=== PATIENT | female | born 2000 | race African-American/Black ===

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

== ENCOUNTER 2020-04-30 23:37 | Observation (INO) | payer MEDICAID ==
[~2020-04-30] VITALS: Ht 157.5 cm; Wt 78.9 kg
[2020-05-01] MEDS: LACTATED RINGERS 1,000 ML IV SCH ×2 (01:43→02:30)
[2020-05-01 03:02] LABS: CLARITY URINE CLEAR (CLEAR); KETONES URINE NEGATIVE (NEGATIVE); LEUKOCYTE ESTERASE URINE NEGATIVE (NEGATIVE); NITRITE URINE NEGATIVE (NEGATIVE); OCCULT BLOOD URINE NEGATIVE (NEGATIVE); PROTEIN URINE NEGATIVE (NEGATIVE); SPECIFIC GRAVITY URINE 1.004 (1.005-1.030); UROBILINOGEN URINE 0.2 E.U./dL (0.2-1.0)
[2020-05-01 03:11] LABS: *AMPHETAMINES SCREEN URINE NEGATIVE (NEGATIVE); *BARBITURATES SCREEN URINE NEGATIVE (NEGATIVE); *BENZODIAZEPINES SCREEN URINE NEGATIVE (NEGATIVE); *COCAINE SCREEN URINE NEGATIVE (NEGATIVE)
[2020-05-01 03:12] LABS: CANNABINOID URINE SCREEN NEGATIVE (NEGATIVE); METHADONE URINE SCREEN NEGATIVE (NEGATIVE); OPIATES URINE SCREEN NEGATIVE (NEGATIVE); PHENCYCLIDINE URINE SCREEN NEGATIVE (NEGATIVE)
[2020-05-01 03:25] LABS: COLOR URINE YELLOW (YELLOW)
[2020-05-01] MEDS ORDERED: PREN1TAB78 PO (03:52)
[2020-05-01] MEDS ORDERED: FOLI-43 PO (03:52)
[2020-05-01] MEDS ORDERED: FERR-71 PO (03:52)
[2020-05-01] MEDS ORDERED: CALC-1042 PO (03:52)
== END 2020-05-01 04:15 | disposition home or self-care (01) ==
LOC: 8 EST LDRP 23:37
PROVIDERS: ADMIT Obstetrics & Gynecology; ATTEND Obstetrics & Gynecology
DX: O36.8120 Decreased fetal movements, second trimester, not applicable or unspecified (principal); Z3A.22 22 weeks gestation of pregnancy; Z79.899 Other long term (current) drug therapy
CPT/HCPCS: 59025; 80305; 81003; 96360; 96361; G0378; 99281

== ENCOUNTER 2024-10-12 14:24 | Emergency (ER) | payer MEDICAID ==
[~2024-10-12] VITALS: Ht 162.6 cm; Wt 68.0 kg
[~2024-10-12 14:24] MED LIST: CALC-1042 PO; FERR-71 PO; FOLI-43 PO; PREN1TAB78 PO
[2024-10-12 14:28] VITALS: O2SAT 98
[2024-10-12] MEDS: IBUPROFEN 600MG TABLET PO ONE (17:38)
[2024-10-12 17:48] VITALS: BP 115/66; PULSE 72; RESP 16; TEMP 36.8; O2SAT 98
== END 2024-10-12 17:49 | disposition home or self-care (01) ==
LOC: ER 14:38
DX: M79.18 Myalgia, other site (principal); V43.52XA Car driver injured in collision with other type car in traffic accident, initial encounter; Y93.89 Activity, other specified; Y92.410 Unspecified street and highway as the place of occurrence of the external cause; Y99.8 Other external cause status
CPT/HCPCS: 99283

== ENCOUNTER 2025-06-18 10:39 | Emergency (ER) | payer MEDICAID ==
[~2025-06-18] VITALS: Ht 167.6 cm; Wt 66.0 kg
[2025-06-18 10:43] VITALS: O2SAT 99
[2025-06-18 11:48] LABS: BASOPHILS % 0.4 % (0.0-2.0); EOSINOPHILS % 0.3 % (0.0-5.0); HEMATOCRIT. 33.6 % (36.0-48.0); HEMOGLOBIN. 11.2 g/dL (12.0-16.0); LYMPHOCYTES % 12.4 % (20.0-50.0); MEAN PLATELET VOLUME 10.3 fl (7.4-10.4); MONOCYTES % 5.5 % (2.0-8.0); NEUTROPHILS % 81.4 % (40.0-76.0); PLATELET 202 x1000/uL (130-400); RED BLOOD CELL COUNT 3.55 mill/uL (4.2-5.4); RED CELL DISTRIBUTION WIDTH 12.1 % (11.6-14.6)
[2025-06-18 12:01] LABS: CREATININE 0.9 mg/dL (0.6-1.0); UREA NITROGEN BLOOD 7 mg/dL (9-23)
[2025-06-18 12:03] LABS: ASPARTATE AMINOTRANSFERASE 20 IU/L (<34); BILIRUBIN DIRECT 0.2 mg/dL (<=3.0)
[2025-06-18 12:04] LABS: BILIRUBIN TOTAL 0.6 mg/dL (0.1-1.0); PROTEIN TOTAL 7.6 g/dL (6.0-8.3)
[2025-06-18 12:12] LABS: CLARITY URINE CLEAR (CLEAR); COLOR URINE YELLOW (YELLOW); GLUCOSE URINE NEGATIVE (NEGATIVE); KETONES URINE NEGATIVE (NEGATIVE); LEUKOCYTE ESTERASE URINE TRACE (NEGATIVE); NITRITE URINE NEGATIVE (NEGATIVE); OCCULT BLOOD URINE NEGATIVE (NEGATIVE); PH URINE >=9.0 (4.5-8.0); PROTEIN URINE 1+ (NEGATIVE); SPECIFIC GRAVITY URINE 1.021 (1.005-1.030); UROBILINOGEN URINE 1.0 E.U./dL (0.2-1.0)
[2025-06-18 12:33] LABS: BACTERIA URINE TRACE; RBC URINE 0-2 /hpf (0-2); SQUAMOUS EPITHELIAL CELL URINE 2+ /lpf (RARE/1+); YEAST URINE NONE SEEN
[2025-06-18 13:05] LABS: HCG SCREEN NEGATIVE
[2025-06-18] MEDS ORDERED: IBUP-1455 MT (14:02)
[2025-06-18] MEDS ORDERED: ONDA-239 PO (14:09)
[2025-06-18 14:32] VITALS: BP 108/62; PULSE 67; RESP 20; TEMP 36.7; O2SAT 100
== END 2025-06-18 14:30 | disposition home or self-care (01) ==
LOC: ER 10:51
DX: N83.12 Corpus luteum cyst of left ovary (principal); D64.9 Anemia, unspecified; Z79.899 Other long term (current) drug therapy
CPT/HCPCS: 36415; 76830; 76856; 80048; 80076; 81003; 81025; 84703; 85025; 99284

== ENCOUNTER 2025-06-23 21:47 | Emergency (ER) | payer MEDICAID ==
[~2025-06-23] VITALS: Ht 177.8 cm; Wt 68.0 kg
[~2025-06-23 21:47] MED LIST changes: +IBUP-1455 MT; +ONDA-239 PO
[2025-06-23 22:01] VITALS: TEMP 36.7; O2SAT 98
[2025-06-23 22:40] LABS: PLATELET 228 x1000/uL (130-400); RED BLOOD CELL COUNT 3.62 mill/uL (4.2-5.4); RED CELL DISTRIBUTION WIDTH 12.0 % (11.6-14.6)
[2025-06-23 22:54] LABS: CREATININE 0.9 mg/dL (0.6-1.0); UREA NITROGEN BLOOD 9 mg/dL (9-23)
[2025-06-23 22:55] LABS: TROPONIN I HIGH SENSITIVITY < 4 ng/L (3.0-34)
[2025-06-23 23:13] LABS: B-HCG QUANTITATIVE < 1 mIU/mL (<6)
[2025-06-23 23:27] VITALS: BP 130/75; PULSE 80; RESP 12; O2SAT 100
== END 2025-06-23 23:29 | disposition home or self-care (01) ==
LOC: ER 21:47
DX: R00.2 Palpitations (principal); R10.20 Pelvic and perineal pain unspecified side; R06.02 Shortness of breath; Z79.899 Other long term (current) drug therapy
CPT/HCPCS: 36415; 71045; 80048; 83880; 84484; 84702; 85027; 93005; 99284; 99285